=== PATIENT | female | born 1970 | race Caucasian/White ===

== ENCOUNTER 2025-01-01 19:00 | Emergency (ER) | payer BC, SELFPAY ==
[2025-01-01 19:02] VITALS: BP 170/100
--- NOTE | 2025-01-01 19:29 | ED.GENMED ---
History of Present Illness
General
Chief Complaint: Skin Problem
Source: patient
Exam Limitations: none
Time Seen by Provider: 01/01/25 19:25
History of Present Illness
History of Present Illness:
Patient got hit by the lid of a trash can with the wind to the right lateral orbit. No LOC no nausea or vomiting no visual issues no diffuse headache no neck pain no thinners. Here for evaluation.
Past History
Past History
ED Past Medical History: None
Phy Exam
Physical Exam
Physical Exam:
TRAUMA EXAM:
VITAL SIGNS: Vital signs reviewed, cooperative
DISTRESS: No active disease
EYES: Pupils reactive, small hematoma to the right lateral orbit. No depression
NOSE: No deformity or epistaxis
FACE AND SCALP: No scalp or facial trauma, external canals no blood
NECK: Supple nontender
RESPIRATORY: No distress
SKIN: Warm and dry
NEUROLOGICAL: Alert, oriented, no motor deficits
PSYCH: Mood affect normal
Scores
PECARN >2 YEARS
GCS <15: No
Signs basilar skull fracture: No
LOC: No
Patient vomiting: No
Severe headache: No
Severe mechanism: No
If any criteria positive, consider head CT: No
Course
Vital Signs
Initial and Last Documented VS:
Initial Vital Signs
Temp Pulse Resp BP Pulse Ox
99.1 F 90 20 170/100 98
01/01/25 19:02 01/01/25 19:02 01/01/25 19:02 01/01/25 19:02 01/01/25 19:02
Last Documented Vital Signs
Temp Pulse Resp BP Pulse Ox
99.1 F 90 20 170/100 98
01/01/25 19:02 01/01/25 19:02 01/01/25 19:02 01/01/25 19:02 01/01/25 19:33
MDM/Problems Addressed
Differential Diagnosis Includes:
Small hematoma to the right lateral orbit. No depression. No other signs of trauma. Neurologically fully awake and alert and oriented. No LOC no diffuse headache no nausea or vomiting. Do not feel CT scan is warranted. Offered x-rays for
facial fracture although highly doubt fracture. Very reasonable for outpatient observation. Patient is comfortable with this approach
*Pulse Oximetry
SaO2: 98
Oxygen Mode of Delivery: Room air
Patient hypoxic: no
*Critical Care Note
Total Time (30-74mins, 75-104mins- exclusive of procedures): Not Applicable
ED Attending Note
-
Portions of this chart may have been created with voice recognition software.� Occasional wrong word or��sound alike� substitutions may have occurred due to the inherent limitations of voice recognition software.
Discharge Plan
Departure
Patient Disposition: Home (Routine Discharge)
Date of Disposition: 01/01/25
Time of Disposition: 19:31
Patient with high blood pressure during this ER visit?: Yes
Discharge Problem:
Minor head injury, Right periorbital hematoma
Instructions: Head injury in adults, BLOOD PRESSURE, Hematoma
Activity Restrictions/Additional Instructions:
Advil or Motrin for pain
You can put ice to the hematoma
Follow-up with your physician in 2 to 3 days. However return sooner with progression of symptoms diffuse headache vomiting etc.
Interventions
Interventions:
*Risk Screen - Suicide Last Done: 01/01/25 19:02
*Neglect/Abuse Screening Last Done: 01/01/25 19:02
ED-Skin Assessment Last Done: 01/01/25 19:38
Discharge Date and Time
Print Language: LITHUANIAN
== END 2025-01-01 19:44 | disposition home or self-care (01) ==
LOC: EMR 19:00
PROVIDERS: EMERGENCY PHYSICIAN Emergency Medicine; FAMILY PHYSICIAN Nurse Practitioner Gerontology
DX: S00.11XA Contusion of right eyelid and periocular area, initial encounter (principal); W22.8XXA Striking against or struck by other objects, initial encounter
CPT/HCPCS: 99282